=== PATIENT | male | born 1950 | race Caucasian/White ===

== ENCOUNTER 2019-11-12 00:04 | Emergency (ER) | payer OTHER ==
[2019-11-12] MEDS ORDERED: HYDROmorphone 1 MG/ML Syringe IVPUSH ONE ×3 (00:56→07:08)
--- NOTE | 2019-11-12 02:37 | EDM.PDOC ---
ED HPI GENERAL MEDICAL PROBLEM - General Chief Complaint: Upper Extremity Injury/Pain Stated Complaint: FALL VIA [place] Time Seen by Provider: 11/12/19 00:25 Source of Information: Reports: Patient History Limitations: Reports: No Limitations - History of Present Illness INITIAL COMMENTS - FREE TEXT/NARRATIVE: pt was [facility]. He was very sleepy and he got up and fell. He had severe pain in the left lower leg. Onset: Today, Sudden Duration: Hour(s): Location: Reports: Lower Extremity, Left Associated Symptoms: Reports: No Other Symptoms Left Lower Leg Pain Score (Numeric/FACES): 3 - Related Data Allergies Allergy/AdvReac Type Severity Reaction Status Date / Time atorvastatin Allergy Cannot Verified 11/12/19 00:20 Remember gemfibrozil Allergy Cannot Verified 11/12/19 00:20 Remember lisinopril Allergy Cannot Verified 11/12/19 00:20 Remember Penicillins Allergy Cannot Verified 11/12/19 00:20 Remember Sulfa (Sulfonamide Allergy Cannot Verified 11/12/19 00:20 Antibiotics) Remember Tetracyclines Allergy Cannot Verified 11/12/19 00:20 Remember Home Meds: Home Meds Aspirin 325 mg PO DAILY 10/12/13 [History] DULoxetine HCl [Duloxetine HCl] 60 mg PO DAILY 10/12/13 [History] Furosemide [Lasix] 80 mg PO DAILY 10/12/13 [History] Isosorbide Mononitrate [Imdur] 15 mg PO DAILY 10/12/13 [History] Losartan [Cozaar] 50 mg PO DAILY 10/12/13 [History] Metoprolol Succinate 200 mg PO DAILY 10/12/13 [History] QUEtiapine Fumarate [Seroquel] 600 mg PO BEDTIME 10/12/13 [History] Rosuvastatin Calcium [Crestor] 40 mg PO DAILY 10/12/13 [History] metFORMIN HCl [Metformin HCl] 2,000 mg PO DAILY 10/12/13 [History] Cholecalciferol (Vitamin D3) [Vitamin D3] 1 tab PO DAILY 11/12/19 [History] Magnesium Oxide 1 tab PO DAILY 11/12/19 [History] Sennosides/Docusate Sodium [Docusate Sodium-Sennosides Tab] 1 tab PO ASDIRECTED PRN 11/12/19 [History] Spironolactone [Aldactone] 1 tab PO DAILY 11/12/19 [History] glipiZIDE [Glucotrol XL] 1 tab PO BID 11/12/19 [History] traZODone 1 - 2 tab PO BEDTIME 11/12/19 [History] Past Medical History HEENT History: Reports: Hard of Hearing, Impaired Vision Cardiovascular History: Reports: Heart Failure, Hypertension, Other (See Below) Other Cardiovascular History: "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" Genitourinary History: Reports: Renal Calculus Psychiatric History: Reports: Anxiety, Depression, PTSD Endocrine/Metabolic History: Reports: Diabetes, Type II Social & Family History - Tobacco Use Smoking Status *Q: Former Smoker Used Tobacco, but Quit: Yes Month/Year Tobacco Last Used: 0 Tobacco Use Comment: "quit a long time ago" - Caffeine Use Caffeine Use: Reports: Coffee, Soda - Recreational Drug Use Recreational Drug Use: No Review of Systems - Review of Systems Review Of Systems: See Below Constitutional: Reports: No Symptoms Eyes: Reports: No Symptoms Ears: Reports: No Symptoms Nose: Reports: No Symptoms Mouth/Throat: Reports: No Symptoms Respiratory: Reports: No Symptoms Cardiovascular: Reports: No Symptoms GI/Abdominal: Reports: No Symptoms Genitourinary: Reports: No Symptoms Musculoskeletal: Reports: Other ( severe pain in the left leg after a fall. ) Skin: Reports: No Symptoms ED EXAM, GENERAL - Physical Exam Exam: See Below Free Text/Narrative:: pt arrived with severe pain in the left lower leg. Pt got up at home and fell. Exam Limited By: No Limitations General Appearance: Alert, Anxious, Moderate Distress Ears: Normal TMs Nose: Normal Inspection Throat/Mouth: Normal Inspection Head: Atraumatic Neck: Normal Inspection Respiratory/Chest: No Respiratory Distress Cardiovascular: Regular Rate, Rhythm GI/Abdominal: Soft, Non-Tender (Male) Exam: Deferred Rectal (Males) Exam: Deferred Back Exam: Normal Inspection Extremities: Other (pt has tenderness up by the knee and pain just above the ankle. ) Neurological: Alert, Oriented, Normal Cognition Course - Vital Signs Last Recorded V/S: Last Vital Signs Temp 36.8 C 11/12/19 00:19 Pulse 61 11/12/19 05:47 Resp 14 11/12/19 05:38 BP 118/64 11/12/19 05:38 Pulse Ox 96 11/12/19 05:48 - Orders/Labs/Meds Orders: Active Orders 24 hr Category Date Time Status EKG Documentation Completion [RC] ASDIRECTED Care 11/12/19 02:34 Active Ankle Min 3V Lt [CR] Stat Exams 11/12/19 00:19 Taken Tibia Fibula Lt [CR] Stat Exams 11/12/19 00:19 Taken UA W/MICROSCOPIC [URIN] Urgent Lab 11/12/19 02:34 Ordered EKG 12 Lead [EK] Routine Ther 11/12/19 02:34 Ordered Labs: Laboratory Tests 11/12/19 11/12/19 Range/Units 02:45 02:45 WBC 10.2 (4.5-11.0) K/uL RBC 4.49 (4.30-5.90) M/uL Hgb 12.8 (12.0-15.0) g/dL Hct 39.1 L (40.0-54.0) % MCV 87 (80-98) fL MCH 29 (27-31) pg MCHC 33 (32-36) % Plt Count 243 (150-400) K/uL Neut % (Auto) 69 H (36-66) % Lymph % (Auto) 21 L (24-44) % [place] % (Auto) 9 H (2-6) % Eos % (Auto) 1 L (2-4) % Baso % (Auto) 1 (0-1) % Sodium 138 L (140-148) mmol/L Potassium 4.4 (3.6-5.2) mmol/L Chloride 101 (100-108) mmol/L Carbon Dioxide 25 (21-32) mmol/L Anion Gap 16.4 H (5.0-14.0) mmol/L BUN 18 (7-18) mg/dL Creatinine 1.2 (0.8-1.3) mg/dL Est Cr Clr Drug Dosing 62.75 mL/min Estimated GFR (MDRD) > 60 (>60) Glucose 145 H (74-106) mg/dL Calcium 8.7 (8.5-10.1) mg/dL Total Bilirubin 0.3 (0.2-1.0) mg/dL AST 27 (15-37) U/L ALT 45 (12-78) U/L Alkaline Phosphatase 77 (46-116) U/L Total Protein 7.4 (6.4-8.2) g/dL Albumin 3.9 (3.4-5.0) g/dL Globulin 3.5 (2.3-3.5) g/dL Albumin/Globulin Ratio 1.1 L (1.2-2.2) Meds: Medications Discontinued Medications Generic Name Dose Route Start Last Admin Trade Name Emilq PRN Reason Stop Dose Admin Hydromorphone HCl 1 mg 11/12/19 00:56 11/12/19 01:16 Dilaudid IVPUSH 11/12/19 00:57 1 mg ONETIME ONE Administration Hydromorphone HCl 1 mg 11/12/19 02:37 11/12/19 05:37 Dilaudid IVPUSH 11/12/19 02:38 1 mg ONETIME ONE Administration Hydromorphone HCl Confirm 11/12/19 05:36 Dilaudid Administered 11/12/19 05:37 Dose 1 mg .ROUTE .STK-MED ONE - Re-Assessments/Exams Free Text/Narrative Re-Assessment/Exam: 11/12/19 02:36 xray reveals a spiral fracture of the distal tibia and a secondary fracture of the proximal fibula. 11/12/19 06:27 pt had a Ekg which does not show acute changes. His lab work is not remarkable. 11/12/19 07:02 Sd was contacted --[facility] and it was felt this should be done locally. Departure - Departure Time of Disposition: 07:03 Disposition: DC/Tfer to Acute Hospital 02 Condition: Fair Clinical Impression: Fracture of distal end of tibia, Fracture of upper end of fibula - Discharge Information Referrals: PCP,None [Primary Care Provider] - Forms: ED Department Discharge Care Plan Goals: transfer to [facility] Sepsis Event Note (ED) - Evaluation Sepsis Screening Result: No Definite Risk - Focused Exam Vital Signs: Vital Signs Temp Pulse Resp BP Pulse Ox 11/12/19 05:48 96 11/12/19 05:47 61 83 L 11/12/19 05:38 64 14 118/64 98 11/12/19 01:15 58 L 18 115/65 97 11/12/19 00:19 36.8 C 64 16 115/60 94 L - My Orders Last 24 Hours: My Active Orders 11/12/19 00:19 Ankle Min 3V Lt [CR] Stat Tibia Fibula Lt [CR] Stat 11/12/19 02:34 EKG Documentation Completion [RC] ASDIRECTED UA W/MICROSCOPIC [URIN] Urgent EKG 12 Lead [EK] Routine - Assessment/Plan Last 24 Hours: My Active Orders 11/12/19 00:19 Ankle Min 3V Lt [CR] Stat Tibia Fibula Lt [CR] Stat 11/12/19 02:34 EKG Documentation Completion [RC] ASDIRECTED UA W/MICROSCOPIC [URIN] Urgent EKG 12 Lead [EK] Routine
[2019-11-12] MEDS ORDERED: HYDROmorphone 1 MG/ML Syringe ONE (05:36)
--- NOTE | 2019-11-12 09:00 | CR ---
Ankle Min 3V Lt, Tibia Fibula Lt CLINICAL HISTORY: Injury FINDINGS: Patient has a oblique displaced fracture of the distal tibial diaphysis. Visualized fibula is intact. The ankle mortise is anatomic. Impression: Displaced oblique fracture distal tibia Ruma graph , Tibia Fibula Lt CLINICAL HISTORY: Injury FINDINGS: Patient has an oblique fracture of the distal tibial diaphysis. There is also a comminuted displaced fracture of the proximal fibula. Impression: Proximal fibular and distal tibial displaced fractures
== END 2019-11-12 07:47 ==
LOC: JP.ED 00:04
DX: S82.392A Other fracture of lower end of left tibia, initial encounter for closed fracture (principal); S82.832A Other fracture of upper and lower end of left fibula, initial encounter for closed fracture; I11.0 Hypertensive heart disease with heart failure; I50.9 Heart failure, unspecified; E11.9 Type 2 diabetes mellitus without complications; F41.9 Anxiety disorder, unspecified; F32.9 Major depressive disorder, single episode, unspecified; F43.10 Post-traumatic stress disorder, unspecified; Z87.891 Personal history of nicotine dependence; Z88.1 Allergy status to other antibiotic agents; Z88.0 Allergy status to penicillin; Z88.2 Allergy status to sulfonamides; Z88.8 Allergy status to other drugs, medicaments and biological substances; Z79.84 Long term (current) use of oral hypoglycemic drugs; Z79.82 Long term (current) use of aspirin; Z79.899 Other long term (current) drug therapy; W19.XXXA Unspecified fall, initial encounter
CPT/HCPCS: 36415; 73590; 73610; 80053; 85025; 93005; 96374; 96376; 99285; J1170; 93010; 99284